=== PATIENT | male | born 1970 | race Caucasian/White ===

== ENCOUNTER 2021-11-08 16:43 | Emergency (ER) | payer MEDICAID, OTHER ==
[~2021-11-08] VITALS: Ht 177.8 cm; Wt 91.0 kg
[2021-11-08] MEDS ORDERED: LORAZEPAM 1MG TABLET PO ONE (18:15)
[2021-11-08 18:59] VITALS: BP 126/65
== END 2021-11-08 19:01 | disposition home or self-care (01) ==
LOC: ER 16:43
DX: F41.9 Anxiety disorder, unspecified (principal)
CPT/HCPCS: 99283

== ENCOUNTER 2022-01-28 05:40 | Emergency (ER) | payer OTHER | END 2022-01-28 08:34 | disposition left against medical advice (07) | LOC: ER 05:40 | DX: Z53.21 Procedure and treatment not carried out due to patient leaving prior to being seen by health care provider (principal) ==